=== PATIENT | male | born 1945 | race Asian ===

== ENCOUNTER 2025-08-19 11:38 | Emergency (ER) | payer BC, OTHER ==
[~2025-08-19] VITALS: Ht 165.1 cm; Wt 81.8 kg
[2025-08-19 11:42] VITALS: BP 114/71; PULSE 78; RESP 18; TEMP 97.1; O2SAT 92
--- NOTE | 2025-08-19 14:35 | ED.PDOC ---
Back pain HPI HPI Comments 80M presents to the ER in a wheelchair being pushed by son/spouse w/ prior MHx of chronic back pain:SHx of Spinal Sx(limited mobility), Cervical Sx and the c/c of a fall injury. the son who is translating for the pt reports on the pt stating on falling 3 times on his left lower back. After the fall's the pt started to have decrease in movement to the LLE as well as severe pain this morning causing the son to give the pt pain meds before arrival to the ED. Denies any other symptoms at this time. Denies chills, fever, N/V/D, SOB, CP. Denies any other associated symptom's, modifiers, or recent injuries or sick contact at this time. Chief Complaint: Fall Injury Time Seen by MD: 14:00 Reviewed Notes: Nurses Notes, Medications, Allergies Allergies: Coded Allergies: NO KNOWN ALLERGIES (Unverified , 08/19/25) Information Source: Patient, Relative (son), Spouse Mode of Arrival: Wheelchair Timing: Hours Duration: Since onset, Hours Location of Back pain: (R) Lumbar Severity: Moderate Prehospital treatment: None Quality: Aching Onset: Fall History of: Chronic Back Pain Associated signs and symptoms: Weakness:(L) Leg Past Medical History PAST MEDICAL HISTORY: Denies Past Medical History (Other): Limited Mobility, Chrnonic Back Pain Surgical History: Denies all surgeries Surgical History (Other): Spinal Sx, Cervical Sx, Family History Family History: Reviewed,noncontributory to illness, Unknown Social History Smoker: Non-Smoker Alcohol: Denies ETOH Use Drugs: Denies Drug Use Lives In: Home Constitutional: denies: chills, diaphoresis, fatigue, fever, malaise, sweats, weakness, others EENTM: denies: blurred vision, double vision, ear bleeding, ear discharge, ear drainage, ear pain, ear ringing, eye pain, eye redness, hearing loss, mouth pain, mouth swelling, nasal discharge, nose bleeding, nose congestion, nose pain, photophobia, tearing, throat pain, throat swelling, voice changes, others Respiratory: denies: cough, hemoptysis, orthopnea, SOB at rest, shortness of b reath, SOB with excertion, stridor, wheezing, others Cardiovascular: denies: chest pain, dizzy spells, diaphoresis, Dyspnea on exertion, edema, irregular heart beat, left arm pain, lightheadedness, palpitations, PND, syncope, others Gastrointestinal: denies: abdomen distended, abdominal pain, blood streaked bowels, constipated, diarrhea, dysphagia, difficulty swallowing, hematemesis, melena, nausea, poor appetite, poor fluid intake, rectal bleeding, rectal pain, vomiting, others Genitourinary: denies: burning, dysuria, flank pain, frequency, hematuria, incontinence, penile discharge, penile sore, pain, testicle pain, testicle swelling, urgency, others Neurological: denies: dizziness, fainting, headache, left sided numbness, left sided weakness, numbness, paresthesia, pre-existing deficit, right sided numbness, right sided weakness, seizure, speech problems, tingling, tremors, weakness, others Musculoskeletal: reports: others (LLE weakness); denies: back pain, gout, joint pain, joint swelling, muscle pain, muscle stiffness, neck pain Integumetry: denies: bruises, change in color, change in hair/nails, dryness, laceration, lesions, lumps, rash, wounds, others Allergic/Immunocompromised: denies: Difficulty Healing, Frequent Infections, Hives, Itching, others Hematologic/Lymphatic: denies: anemia, blood clots, easy bleeding, easy bruising, swollen glands, others Endocrine: denies: excessive hunger, excessive sweating, excessive thirst, excessive urination, flushing, intolerance to cold, intolerance to heat, unexplained weight gain, unexplained weight loss, others Psychiatric: denies: anxiety, bipolar disorder, depression, hopeless, panic disorder, schizophrenia, sleepless, suicidal, others All Other Systems: Reviewed and Negative Physical Exam General Appearance: No Apparent Distress, Normal HEENT: Normal ENT Inspection, PERRL/EOMI, Pharynx Normal, TMs Normal Neck: Full Range of Motion, Non-Tender, Normal, Normal Inspection Respiratory: Chest Non-Tender, Lungs Clear, No Accessory Muscle Use, No Respiratory Distress, Normal Breath Sounds Cardiovascular: No Edema, No JVD, No Murmur, No Gallop, Normal Peripheral Pulses, Regular Rate/Rhythm Breast Exam: Deferred Gastrointestinal: No Organomegaly, Non Tender, No Pulsatile Mass, Normal Bowel Sounds, Soft Genitalia: Deferred Pelvic: Deferred Rectal: Deferred Extremities: Decreased range of motion, No calf tenderness, Normal capillary refill, Normal inspection, Normal range of motion, No pedal edema, Tender, Other (Left leg became very weak after the fall) Musculoskeletal : Apperance: Normal Neurologic: Alert, computer engineering professor II-XII nml as Tested, Motor Weakness, No Motor Deficits, Normal Affect, Normal Mood, No Sensory Deficits, Other (Wheelchair-bound) Cerebellar Function: NOT DONE Reflexes: NOT DONE Skin: Dry, Normal Color, Warm Peripheral Pulses: 1+ carotid (R), 1+ carotid (L) Lymphatic: No Adenopathy Was a procedure done? Was a procedure done?: No Back Pain Differential Dx Differential Diagnosis: Fracture, Musculoskeletal Pain X-Ray, Labs, Meds, VS Vital Signs Date Time Temp Pulse Resp B/P (MAP) Pulse Ox O2 Delivery O2 Flow Rate FiO2 08/19/25 11:42 97.1 78 18 114/71 92 97.1 X-Ray, Labs, Meds, VS Comment Course in the emergency department patient was sent for CT of the pelvis for but he left and no diagnosis has been made Time of 1ST Reevaluation: 14:30 Reevaluation 1ST: Unchanged Time of 2ND Reevaluation: 16:31 Reevaluation 2ND: Unchanged Consultation: PCP Patient Education/Counseling: Diagnosis, Treatment, Prognosis, Need For Follow Up Family Education/Counseling: Diagnosis, Treatment, Prognosis, Need For Follow Up, Other (Family at bedside) SEPSIS Sepsis Screen Date sepsis recognized/suspect: Aug 19, 2025 Time Sepsis recognized/suspect: 1145 Recent Procedure: No On Antibiotic Therapy: No Respiratory Rate >20: No Heart Rate >90: No Temp<36 C (96.8 F) or >38.3 C: No SBP <90 or MAP <65 mmHG: No New Acute Mental Status Change: No Is the patient on CPAP, BIPAP,: No Vital Signs Date Time Temp Pulse Resp B/P (MAP) Pulse Ox O2 Delivery O2 Flow Rate FiO2 08/19/25 11:42 97.1 78 18 114/71 92 97.1 Departure 1 Departure Time of Disposition: 16:31 Impression: Primary Impression: Fall at home Additional Impression: Contusion of left hip Disposition: 07 LEFT AWOL/ELOPED Condition: Fair Discharged With: Self, Spouse, Entry Level Accountant Critical Care Note Critical Care Time?: No Stability Stability form required: No Heart Score Heart Score: Heart Score Response (Comments) Value History N/A 0 EKG N/A 0 Age >65 2 Risk Factors >3 or Hx ASHD 2 Troponin N/A 0 Total 4 I personally scribed for LIZETT MARTINEZ MD ([email or web address]) on 08/19/25 at 14:35. Electronically submitted by Radames Browning ([email or web address]). LIZETT MARTINEZ MD Aug 19, 2025 14:35
== END 2025-08-19 17:38 | disposition home or self-care (01) ==
LOC: ER 11:38
DX: S70.02XA Contusion of left hip, initial encounter (principal); W19.XXXA Unspecified fall, initial encounter; Y93.89 Activity, other specified; Y92.009 Unspecified place in unspecified non-institutional (private) residence as the place of occurrence of the external cause; Y99.8 Other external cause status

== ENCOUNTER 2025-08-21 21:58 | Inpatient (IN) | payer BC, OTHER ==
[~2025-08-21] VITALS: Ht 172.7 cm; Wt 72.3 kg
[2025-08-21] MEDS: ACETAMINOPHEN 325 MG TAB PO ONE (22:31)
[2025-08-21 22:36] VITALS: PULSE 87; RESP 18; O2SAT 93
--- NOTE | 2025-08-22 01:50 | ED.PDOC ---
History of Present Illness HPI Comments 80-year-old, Mohawk speaking male is [id number] sudden spouse for chief complaint of bilateral leg swelling. Per son, patient legs are, normally, swollen at baseline but is reported to have, suddenly, worsened, today, following recent fall at home he sustained on 08/19/2025. Left leg is comminuted to be worse in his right, with the associated redness. No additional trauma or injuries reported since then. He is stated also to have had a recent spinal surgery performed for chronic back pain within the past few months. Patient denies having any shortness of breath or further acute symptoms. REVIEW OF SYSTEMS: General: No fever, no chills, or fatigue HEENT: No sore throat, no earache, no congestion, no neck pain. Cardiac: No chest pain. No palpitations. Lungs: No shortness of breath, no cough. GI: No nausea, no vomiting, no diarrhea, no constipation, no abdominal pain : No dysuria, frequency, or urgency. No hematuria. Musculoskeletal: Bilateral leg swelling. Skin: Redness to left leg. No rash, no itching. Neuro: No headache, no dizziness, no weakness (And as sated in HPI) PHYSICAL EXAM: General: Awake, alert and oriented. No acute distress. Skin: Skin in warm, dry and intact. Appropriate color for ethnicity. HEENT: The head is normocephalic and atraumatic. Conjunctivae are clear without exudates or hemorrhage. Sclera is non-icteric. Eyelids are normal in appearance without swelling or lesions. Oral mucosa is pink and moist Neck: The neck is supple with normal range of motion. No JVD. Cardiac: Heart rate and rhythm are normal. No murmurs, gallops, or rubs are auscultated. Respiratory: No signs of respiratory distress. Lung sounds are clear in all lobes bilaterally without rales, rhonchi, or wheezes. Abdominal: Abdomen is soft, non-tender without distention, guarding or rigidity. Bowel sounds are present and normoactive in all four quadrants. Extremities: BLE edema-left is worse than right, with erythema and warmth. Bilateral DP pulses are good. Remaining upper extremities are atraumatic in appearance without deformity or edema. Neurological: The patient is awake, alert and oriented to person, place, and time with normal speech. Speech is clear. There is no facial asymmetry. Psychiatric: Appropriate mood and affect. Good judgement and insight. Chief Complaint: Lower Extremity Time Seen by MD: 01:10 Reviewed Notes: Nurses Notes, Medications, Allergies Allergies: Coded Allergies: NO KNOWN ALLERGIES (Unverified , 08/19/25) Information Source: Patient, Relative (Child), Spouse Mode of Arrival: EMS Severity: Moderate Timing: Hours Duration: Since onset Prehospital treatment: None Past Medical History Past Medical History (Other): Limited Mobility, Chrnonic Back Pain Surgical History (Other): Spine surgery Family History Family History: Reviewed,noncontributory to illness, Unknown Social History Smoker: Non-Smoker Alcohol: Denies ETOH Use Drugs: Denies Drug Use Lives In: Home Was a procedure done? Was a procedure done?: No Differential Dx Considerations may include: DVT, cellulitis, food retention, CHF, among others X-Ray, Labs, Meds, VS Vital Signs Date Time Temp Pulse Resp B/P (MAP) Pulse Ox O2 Delivery O2 Flow Rate FiO2 08/21/25 23:31 98.9 08/21/25 22:36 87 18 93 Room Air* 0 21 08/21/25 22:36 100.2 87 18 113/68 (83) 93 100.2 08/21/25 22:31 101.2 08/21/25 22:07 86 08/21/25 22:05 101.3 90 16 148/87 95 101.3 Lab Test 08/22/25 01:55 Range/Units White Blood Count 8.6 4.4-10.8 10^3/uL Red Blood Count 3.60 L 4.5-5.90 10^6/uL Hemoglobin 12.4 L 13.5-17.5 g/dL Hematocrit 35.5 L 41.0-53.0 % Mean Corpuscular Volume 98.6 80.0-100.0 fL Mean Corpuscular Hemoglobin 34.5 H 28.0-32.0 pg Mean Corpuscular Hemoglobin Concent 35.0 32.0-36.0 g/dL Red Cell Distribution Width 13.5 11.8-14.3 % Platelet Count 141 140-450 10^3/uL Mean Platelet Volume 7.8 6.9-10.8 fL Neutrophils (%) (Auto) 76.2 37.0-80.0 % Lymphocytes (%) (Auto) 14.3 10.0-50.0 % Monocytes (%) (Auto) 9.1 0.0-12.0 % Eosinophils (%) (Auto) 0.3 0.0-7.0 % Basophils (%) (Auto) 0.1 0.0-2.0 % Neutrophils # (Auto) 6.5 1.6-8.6 10 ^3/uL Lymphocytes # (Auto) 1.2 0.4-5.4 10 ^3/uL Monocytes # (Auto) 0.8 0-1.3 10 ^3/uL Eosinophils # (Auto) 0 0-0.8 10 ^3/uL Basophils # (Auto) 0 0-0.2 10 ^3/uL Nucleated Red Blood Cells 0.0 % Sodium Level 140 136-145 mmol/L Potassium Level 3.5 3.5-5.1 mmol/L Chloride Level 107 98-107 mmol/L Carbon Dioxide Level 23 20-31 mmol/L Anion Gap 10 5-15 Blood Urea Nitrogen 13 9-23 mg/dL Creatinine 0.78 0.700-1.30 mg/dL Glomerular Filtration Rate Calc 90 >90 mL/min BUN/Creatinine Ratio 16.7 10.0-20.0 Serum Glucose 126 H 74-106 mg/dL Calcium Level 9.0 8.7-10.4 mg/dL Troponin I High Sensitivity 13 </=54 ng/L B-Type Natriuretic Peptide 162.03 0-100 pg/mL Current Medications Medications (Trade) Dose Ordered Sig/Bobby Route Start Time Stop Time Status Last Admin Acetaminophen (Tylenol Tablet) 650 mg ONCE ONCE PO 08/21/25 22:30 08/21/25 22:31 DC 08/21/25 22:31 Time of 1ST Reevaluation: 01:37 Reevaluation 1ST: Unchanged Patient Education/Counseling: Other (Need for admission) Family Education/Counseling: Other (Need for admission) SEPSIS Sepsis Screen Date sepsis recognized/suspect: Aug 21, 2025 Time Sepsis recognized/suspect: 2235 Recent Procedure: No On Antibiotic Therapy: No Respiratory Rate >20: No Heart Rate >90: No Temp<36 C (96.8 F) or >38.3 C: No SBP <90 or MAP <65 mmHG: No New Acute Mental Status Change: No Is the patient on CPAP, BIPAP,: No Physician Orders Electrocardigram (08/21/25 22:14) Electrocardigram (08/22/25 01:17) Chest Xray 1 View (08/22/25 01:17) Vital Signs Q1HR (08/22/25 01:17) Saline Lock (08/22/25 01:17) Solid Plasterer (08/22/25 ) Bilat Lower Dvt (08/22/25 01:17) Vital Signs Date Time Temp Pulse Resp B/P (MAP) Pulse Ox O2 Delivery O2 Flow Rate FiO2 08/21/25 23:31 98.9 08/21/25 22:36 87 18 93 Room Air* 0 21 08/21/25 22:36 100.2 87 18 113/68 (83) 93 100.2 08/21/25 22:31 101.2 08/21/25 22:07 86 08/21/25 22:05 101.3 90 16 148/87 95 101.3 Laboratory Tests Test 08/22/25 01:55 White Blood Count 8.6 10^3/uL (4.4-10.8) Medications Medications Dose Ordered Sig/Bobby Route Start Time Stop Time Status Last Admin Dose Admin Acetaminophen 650 mg ONCE ONCE PO 08/21/25 22:30 08/21/25 22:31 DC 08/21/25 22:31 Departure 1 Departure Time of Disposition: 03:11 Impression: Primary Impression: Peripheral edema Additional Impression: Pulmonary edema Disposition: ADMITTED INPATIENT Admit to: [facility] Condition: Stable Comments MDM: 80-year-old male no known history of CHF presents with bilateral lower extremity edema, pulmonary vascular congestion chest x-ray. Lasix administered in the ED. Patient admitted to hospitalist service for further treatment, evaluation and monitoring. Extensive evaluation was performed in attempt to identify or rule out: (See differential diagnosis section) The following tests were ordered, and results were reviewed by me and discussed with patient: (See diagnostic results section) The following test were independently interpreted by me: EKG, troponin, BNP, BMP, CBC I reviewed and agreed with the following test results read by other providers: Chest x-ray, bilateral lower extremity DVT ultrasound I reviewed the following notes from the pt's past medical encounters: 08/19/2025 encounter for fall at home Additional information was gathered from interviewing the following independent historians: Patient's son at bedside Discussion of management or test interpretation with external physician/other qualified health infant childcare provider: N/A Addressed an acute or chronic illness that poses a threat to life or bodily function: Pulmonary edema Decision regarding hospitalization or escalation of hospital level of care: Risk and benefits of admission for further treatment of patient's condition was considered. Due to patient's current clinical condition, high risk of decline and poor outcome if discharged and need for further inpatient management and monitoring, patient will be admitted to the hospital. Drug therapy requiring intensive monitoring for toxicity: IV furosemide Critical Care Note Critical Care Time?: No Stability Stability form required: No Heart Score Heart Score: Heart Score Response (Comments) Value History N/A 0 EKG N/A 0 Age N/A 0 Risk Factors N/A 0 Troponin N/A 0 Total 0 I personally scribed for JAQUELINE MAO MD ([email or web address]) on 08/22/25 at 01:50. El ectronically submitted by Reid Portillo ([email or web address]). JAQUELINE MAO MD Aug 22, 2025 01:50
--- NOTE | 2025-08-22 01:53 | DVH ---
Bilateral lower extremity venous duplex Clinical History: r/o dvt Comparison: None Technique: Duplex Doppler evaluation of the deep venous systems of both lower extremities from the common femoral veins to the popliteal veins including color Doppler and spectral/pulsed waveform analysis was performed. Findings: RIGHT SIDE: The common femoral vein demonstrates appropriate compressibility and waveform variability. There is compressibility/patency of the great saphenous vein at the proximal thigh. The femoral vein demonstrates appropriate compressibility and waveform variability. The deep femoral vein demonstrates appropriate compressibility and waveform variability. The popliteal vein demonstrates appropriate compressibility and waveform variability. There is normal compressibility at the tibioperoneal trunk. LEFT SIDE: The common femoral vein demonstrates appropriate compressibility and waveform variability. There is compressibility/patency of the great saphenous vein at the proximal thigh. The femoral vein demonstrates appropriate compressibility and waveform variability. The deep femoral vein demonstrates appropriate compressibility and waveform variability. The popliteal vein demonstrates appropriate compressibility and waveform variability. There is normal compressibility at the tibioperoneal trunk. Impression: No right or left femoropopliteal venous thrombosis.
--- NOTE | 2025-08-22 02:01 | DVH ---
CHEST RADIOGRAPH Indication: cp Technique: Single frontal view of the chest was obtained COMPARISON: None FINDINGS: Cardiac silhouette is borderline in size. Slight prominence of the pulmonary vasculature. Trace left-sided effusion. Bones and soft tissues demonstrate no significant abnormality. IMPRESSION: Mild pulmonary venous congestion.
[2025-08-22 02:18] LABS: Hematocrit 35.5 % (41.0-53.0); Hemoglobin 12.4 g/dL (13.5-17.5); Mean Corpuscular Hemoglobin 34.5 pg (28.0-32.0); Mean Corpuscular Volume 98.6 fL (80.0-100.0); Nucleated Red Blood Cells % 0.0 %
[2025-08-22 02:26] LABS: Chloride 107 mmol/L (98-107); Potassium 3.5 mmol/L (3.5-5.1); Sodium 140 mmol/L (136-145)
[2025-08-22 02:27] LABS: Anion Gap 10 (5-15); Calcium 9.0 mg/dL (8.7-10.4); Carbon Dioxide 23 mmol/L (20-31)
[2025-08-22 02:32] LABS: BUN/Creatinine Ratio 16.7 (10.0-20.0); Blood Urea Nitrogen 13 mg/dL (9-23)
[2025-08-22 02:54] LABS: Glucose 126 mg/dL (74-106)
--- NOTE | 2025-08-22 04:07 | DVHHPRES ---
History of Present Illness Resident Creating Document: JENNIFER KO History of Present Illness Patient is a Albanian-speaking 80-year-old male with past medical history of BPH and Parkinson's disease, presented to [facility] ED with complaint of worsening bilateral leg swelling. The patient typically has baseline leg swelling, but it acutely worsened today, following a fall from wheelchair at home on 08/19/2025. The left leg is reported to be more swollen and red than the right. The patient has a history of spinal surgery performed 7 years ago for chronic back pain. After the surgery, the patient progressively experienced limited mobility and eventually became wheelchair-bound He denies shortness of breath, chest pain, dizziness, blurred vision, nausea, or vomiting. On evaluation in the ED, patient is febrile, vitals are stable. Initial labs show normocytic anemia, serum glucose 126 and BNP 162.03. The patient was started on IV antibiotics and IV fluids. Patient is admitted for further evaluation and management. Past Medical History BPH, Parkinson's disease Past Surgical History Spinal surgery 7 years ago Family History: None Smoke: Quit ALCOHOL: occassional Drugs: None Review of Systems Review of Systems Eyes: No Pain, No Vision change, No Conjunctivae inflammation, No Eyelid inflammation, No Other, No Redness ENT: No Ear pain, No Ear discharge, No Nose pain, No Nose discharge, No Nose congestion, No Mouth pain, No Mouth swelling, No Throat pain, No Throat swelling, No Other Cardiovascular: No Chest Pain, No Palpitations, No Orthopnea, No Paroxysmal No Dyspnea, Edema, No Lt Headedness, No Other Respiratory: No Cough, No Dry, No Shortness of breath, No SOB with exertion, No Wheezing, No Hemoptysis, No Pleuritic Pain, No Sputum, No Other Gastrointestinal: No Nausea, No Vomiting, No Abdominal Pain, No Diarrhea, No Constipation, No Melena, No Hematochezia, No Other Genitourinary: No Dysuria, No Frequency, No Incontinence, No Hematuria, No Retention, No Other Musculoskeletal: Bilateral leg swelling. No other, No neck pain, No shoulder pain, No arm pain, back pain, No hand pain, leg pain, No foot pain Skin: Redness to left leg. Rash, No Lesions, No Jaundice, No Bruising, No Other Allergies: Coded Allergies: NO KNOWN ALLERGIES (Unverified , 08/19/25) Exam Vital Signs Vital Signs Date Time Temp Pulse Resp B/P (MAP) Pulse Ox O2 Delivery O2 Flow Rate FiO2 08/21/25 23:31 98.9 08/21/25 22:36 87 18 93 Room Air* 0 21 08/21/25 22:36 113/68 (83) Exam General Appearance: Cooperative. Well developed. Well nourished. NAD Head Exam: Normal inspection Neck Exam: Normal inspection. Non-tender. Normal alignment Pulmonary/Respiratory: Chest non-tender. Clear bilateral breath sounds, no crackles, no wheezing. Cardiovascular/Chest: Regular rate and rhythm. No murmurs. No JVD. Peripheral Pulses: 2+ Radial (R). 2+ Radial (L). 2+ Pedal (R). 2+ Pedal (L) Abdominal Exam: Normal bowel sounds. Soft. normal abdomen, no visible veins, Nontender. No hepatospenomegaly. No masses Ankle Exam: Negative ankle edema Extremities: Bilateral lower extremity edema, left greater than right. Left leg with erythema and warmth. No calf tenderness. No signs of trauma to upper extremities. No deformities. Musculoskeletal: Limited mobility. Wheelchair-bound. No joint deformities noted. Neuro/Mental Status: A&O x4. Coherent. Thoughts/Psych: Normal thought pattern. Appropriate mood and affect. Good judgement and insight Skin Exam: Normal inspection. Normal color. Warm. Dry Labs/Xrays Labs Test 08/22/25 01:55 Range/Units White Blood Count 8.6 4.4-10.8 10^3/uL Red Blood Count 3.60 L 4.5-5.90 10^6/uL Hemoglobin 12.4 L 13.5-17.5 g/dL Hematocrit 35.5 L 41.0-53.0 % Mean Corpuscular Volume 98.6 80.0-100.0 fL Mean Corpuscular Hemoglobin 34.5 H 28.0-32.0 pg Mean Corpuscular Hemoglobin Concent 35.0 32.0-36.0 g/dL Red Cell Distribution Width 13.5 11.8-14.3 % Platelet Count 141 140-450 10^3/uL Mean Platelet Volume 7.8 6.9-10.8 fL Neutrophils (%) (Auto) 76.2 37.0-80.0 % Lymphocytes (%) (Auto) 14.3 10.0-50.0 % Monocytes (%) (Auto) 9.1 0.0-12.0 % Eosinophils (%) (Auto) 0.3 0.0-7.0 % Basophils (%) (Auto) 0.1 0.0-2.0 % Neutrophils # (Auto) 6.5 1.6-8.6 10 ^3/uL Lymphocytes # (Auto) 1.2 0.4-5.4 10 ^3/uL Monocytes # (Auto) 0.8 0-1.3 10 ^3/uL Eosinophils # (Auto) 0 0-0.8 10 ^3/uL Basophils # (Auto) 0 0-0.2 10 ^3/uL Nucleated Red Blood Cells 0.0 % Sodium Level 140 136-145 mmol/L Potassium Level 3.5 3.5-5.1 mmol/L Chloride Level 107 98-107 mmol/L Carbon Dioxide Level 23 20-31 mmol/L Anion Gap 10 5-15 Blood Urea Nitrogen 13 9-23 mg/dL Creatinine 0.78 0.700-1.30 mg/dL Glomerular Filtration Rate Calc 90 >90 mL/min BUN/Creatinine Ratio 16.7 10.0-20.0 Serum Glucose 126 H 74-106 mg/dL Calcium Level 9.0 8.7-10.4 mg/dL Troponin I High Sensitivity 13 </=54 ng/L B-Type Natriuretic Peptide 162.03 0-100 pg/mL SEPSIS Sepsis Screen Date sepsis recognized/suspect: Aug 21, 2025 Time Sepsis recognized/suspect: 2235 Recent Procedure: No On Antibiotic Therapy: No Respiratory Rate >20: No Heart Rate >90: No Temp<36 C (96.8 F) or >38.3 C: No SBP <90 or MAP <65 mmHG: No New Acute Mental Status Change: No Is the patient on CPAP, BIPAP,: No Physician Orders Electrocardigram (08/21/25 22:14) Electrocardigram (08/22/25 01:17) Chest Xray 1 View (08/22/25 01:17) Vital Signs Q1HR (08/22/25 01:17) Saline Lock (08/22/25 01:17) Engraver Lettering (08/22/25 ) Bilat Lower Dvt (08/22/25 01:17) Vital Signs Date Time Temp Pulse Resp B/P (MAP) Pulse Ox O2 Delivery O2 Flow Rate FiO2 08/21/25 23:31 98.9 08/21/25 22:36 87 18 93 Room Air* 0 21 08/21/25 22:36 100.2 87 18 113/68 (83) 93 100.2 08/21/25 22:31 101.2 08/21/25 22:07 86 08/21/25 22:05 101.3 90 16 148/87 95 101.3 Laboratory Tests Test 08/22/25 01:55 White Blood Count 8.6 10^3/uL (4.4-10.8) Medications Medications Dose Ordered Sig/Bobby Route Start Time Stop Time Status Last Admin Dose Admin Acetaminophen 650 mg ONCE ONCE PO 08/21/25 22:30 08/21/25 22:31 DC 08/21/25 22:31 650 MG Assessment/Plan Assessment/Plan Bilateral lower extremity cellulitis Ruled out DVT Bilateral lower extremity venous duplex: No right or left femoropopliteal venous thrombosis. Chest X-ray : Mild pulmonary venous congestion. Echocardiogram ordered Vancomycin IV per pharmacy pain management with Dilaudid and Lidocaine 1 patch UA MRSA screen Lasix 40 MG IV daily BPH Tamsulosin 0.4 MG PO qpm Parkinson disease Pramipexole 0.25 MG PO q8h Diet: Regular Goals of care: Full code, discussed for >30 minutes on 08/22/25 Plan discussed with patient Plan discussed with Dr. June Plan discussed with: Patient Date of Service: Aug 22, 2025 Billing Provider: ADRIANO JUNE MD Common Visit Codes: 62822-[id number] INP/OBS CARE (HIGH) Secondary Visit Codes: [id number]-[id number] CARE PLAN 30 MINUTES JENNIFER KO RESIDENT Aug 22, 2025 04:07
[2025-08-22] MEDS: LIDOCAINE 5% TOPICAL PATCH TOP ONE (04:15)
[2025-08-22] MEDS ORDERED: VANCOMYCIN PER PHARMACY 0 MG IV SCH (04:15)
[2025-08-22 05:14] LABS: Alanine Aminotransferase 30.0 U/L (7-40); Albumin 4.0 g/dL (3.2-4.8); Alkaline Phosphatase 59.0 U/L (46-116); Magnesium 2.1 mg/dL (1.6-2.6); Total Protein 6.7 g/dL (5.7-8.2)
[2025-08-22 05:17] LABS: Bilirubin, Total 1.3 mg/dL (0.2-1.0)
[2025-08-22 05:29] LABS: Bilirubin, Direct 0.4 mg/dL (<0.3)
[2025-08-22 05:50] LABS: Urine Protein, UAD TRACE (Negative)
--- NOTE | 2025-08-22 05:52 | ECG ---
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
[2025-08-22] MEDS: PRAMIPEXOLE DIHYDROCHLORIDE MO 0.25 MG TAB PO SCH (07:00)
[2025-08-22] MEDS: FUROSEMIDE 40 MG/4 ML VIAL IV ONE (07:08)
[2025-08-22] MEDS: TAMSULOSIN HYDROCHLORIDE 0.4 MG CAP PO ONE (07:12)
[2025-08-22] MEDS: VANCOMYCIN 1GM/250ML KIT 250 ML IV ONE (07:13)
[2025-08-22 07:52] VITALS: PULSE 60; RESP 18; O2SAT 93
[2025-08-22 07:56] LABS: Hematocrit 37.0 % (41.0-53.0); Nucleated Red Blood Cells % 0.0 %
[2025-08-22 07:59] LABS: Hemoglobin 12.9 g/dL (13.5-17.5); Mean Corpuscular Hemoglobin 34.5 pg (28.0-32.0); Mean Corpuscular Volume 98.9 fL (80.0-100.0)
[2025-08-22 08:25] LABS: Alanine Aminotransferase 29 U/L (7-40); Albumin 4.2 g/dL (3.2-4.8); Alkaline Phosphatase 62 U/L (46-116); BUN/Creatinine Ratio 14.3 (10.0-20.0); Blood Urea Nitrogen 13 mg/dL (9-23); Calcium 8.8 mg/dL (8.7-10.4); Carbon Dioxide 26 mmol/L (20-31); Sodium 143 mmol/L (136-145); Total Protein 7.3 g/dL (5.7-8.2)
[2025-08-22 08:26] LABS: Bilirubin, Total 1.4 mg/dL (0.2-1.0); Glucose 107 mg/dL (74-106); Potassium 3.3 mmol/L (3.5-5.1)
[2025-08-22 08:40] LABS: COVID19 ANTIGEN SOFIA FIA NEGATIVE (NEGATIVE)
[2025-08-22] MEDS: POTASSIUM CHL 20MEQ/100ML 100 ML IV SCH (09:01)
[2025-08-22 09:10] LABS: Anion Gap 10 (5-15); Chloride 107 mmol/L (98-107)
[2025-08-22 09:41] LABS: Triglycerides 88.0 mg/dL (< 150)
[2025-08-22 09:43] LABS: Cholesterol 170.0 mg/dL (< 200); HDL Cholesterol 53.0 mg/dL (40-59)
[2025-08-22] MEDS: FUROSEMIDE 40 MG/4 ML VIAL IV SCH (10:51)
--- NOTE | 2025-08-22 11:58 | DVHSR ---
APPROVED REPORT EXAM: Two-dimensional and M-mode echocardiogram with Doppler and color Doppler. Blood Pressure: 151/91 mmHg RISK FACTORS Height: 5'8, Weight: 110 DIMENSIONS LVDd 5.2 (3.8-5.7cm) LA (2D) 3.5 (1.9-4.0cm) Aortic Root 3.6 (2.0-3.7cm) LVDs 3.7 (2.5-4.0cm) LA (MM) (1.9-4.0cm) Aortic Cusp Exc 1.8 (1.5-2.0cm) EF (%) 55.0 (55-70%) Rt. Atrium 3.4 (1.9-4.0cm) Asc. Aorta 3.5 cm IVSd 0.7 (0.7-1.1cm) RV (D) 4.4 (1.8-2.4cm) PWd 0.7 (0.7-1.1cm) Mitral Valve Mitral Mitral Stenosis E wave 1.00m/s MV Mean GR. mmHg A wave 1.08m/s MV Peak GR. 105mmHg E/A ratio 0.9 2D MVA cm2 DECEL Time 197ms PRESS 1/2 Time ms Aortic Valve Aortic Valve Aortic Stenosis V1 0.97m/s AO Mean GR. 5mmHg V2 1.39m/s AO Peak GR. 8mmHg LVOT Diameter 1.9 (1.8-2.4cm) Doppler BONNIE 1.98cm2 AI P 1/2 Time 599.28ms Pulmonic Valve V2 1.01m/s Tricuspid Valve TR Velocity 2.82m/s RVSP 37mmHg Other Information Technically limited study due to pt moving.patient position. Conclusion lvef 55-60% moderate aortic regurg
[2025-08-22 15:20] VITALS: BP 117/71; PULSE 85; RESP 18; TEMP 98.4; O2SAT 91
[2025-08-22] MEDS ORDERED: LINA290C PO (16:54)
[2025-08-22] MEDS ORDERED: BET25T PO (16:54)
[2025-08-22] MEDS ORDERED: TAMS0.4C39 PO (16:54)
[2025-08-22] MEDS ORDERED: CHOL20002 PO (16:54)
[2025-08-22] MEDS ORDERED: ATOR10TA52 PO (16:54)
[2025-08-22] MEDS ORDERED: GABA-1250 PO (16:54)
[2025-08-22 16:59] VITALS: BP 130/78; PULSE 83; RESP 20; TEMP 98.6; O2SAT 99
[2025-08-22] MEDS: TAMSULOSIN HYDROCHLORIDE 0.4 MG CAP PO SCH (18:31)
[2025-08-22 20:00] VITALS: PULSE 80; RESP 17; O2SAT 97
[2025-08-22] MEDS: VANCOMYCIN 500mg/100mL 100 ML IV SCH (20:11)
[2025-08-22] MEDS: HYDROmorphone HCL 2 MG/ML VL/or syr IV PRN (20:29)
[2025-08-22 21:00] VITALS: BP 125/75; PULSE 76; RESP 17; TEMP 98.7; O2SAT 97
--- NOTE | 2025-08-22 21:19 | DVHPNRES ---
Progress Note Date Seen: Aug 22, 2025 Resident Creating Document: QUANG ROLDAN RESIDENT Has the PT tested + for MRSA If YES, has PT been informed?: No Medical Necessity Reason Pt with a Central, PICC or Fol: No Subjective Review of Systems Jacky Cordero is a 80-year-old male, with past medical history of BPH and Parkinson's disease. The patient presented to [facility] ED with the chief complaint of worsening bilateral leg swelling. The patient typically has baseline leg swelling, but it acutely worsened today, following a fall from wheelchair at home on 08/19/2025. The left leg is reported to be more swollen and red than the right. The patient has a history of spinal surgery performed 7 years ago for chronic back pain. After the surgery, the patient progressively experienced limited mobility and eventually became wheelchair-bound He denies shortness of breath, chest pain, dizziness, blurred vision, nausea, or vomiting. On evaluation in the ED, patient is febrile, vitals are stable. Initial labs show normocytic anemia, serum glucose 126 and BNP 162.03. The patient was started on IV antibiotics and IV fluids. Patient is admitted for further evaluation and management. Past Medical History: BPH, Parkinson's disease Past Surgical History: Spinal surgery 7 years ago Family History: Lives with family, Social history: None Smoke: quit >10 years ago. Alcohol: occasional Drugs: None Hospital course: On 08/22/25, the patient was evaluated and examined at bedside. VS, labs and chart was reviewed. The patient reports left leg pain 9/10, with minimal improved with analgesia. The patient was hypokalemic this morning, potassium was replenished. Doppler US of bilateral leg showed; No right or left femoropopliteal venous thrombosis. The continue with IV antibiotics ceftriaxone and vancomicyn. Blood cultures are pending. New ECHO was ordered, reported: lvef 55-60% moderate aortic regurgitation. We will continue monitoring the progress of this patient. Review of Systems Eyes: No Pain, No Vision change, No Conjunctivae inflammation, No Eyelid inflammation, No Other, No Redness ENT: No Ear pain, No Ear discharge, No Nose pain, No Nose discharge, No Nose congestion, No Mouth pain, No Mouth swelling, No Throat pain, No Throat swelling, No Other Cardiovascular: No Chest Pain, No Palpitations, No Orthopnea, No Paroxysmal No Dyspnea, Edema, No Lt Headedness, No Other Respiratory: No Cough, No Dry, No Shortness of breath, No SOB with exertion, No Wheezing, No Hemoptysis, No Pleuritic Pain, No Sputum, No Other Gastrointestinal: No Nausea, No Vomiting, No Abdominal Pain, No Diarrhea, No Constipation, No Melena, No Hematochezia, No Other Genitourinary: No Dysuria, No Frequency, No Incontinence, No Hematuria, No Retention, No Other Musculoskeletal: Bilateral leg edema. No other, No neck pain, No shoulder pain, No arm pain, chronic back pain, No hand pain, left leg pain, No foot pain Skin: Erythema to left leg. Rash, No Lesions, No Jaundice, No Bruising, No Other Allergies: No known allergies Objective vital signs Vital Sign Date Time Temp Pulse Resp B/P (MAP) Pulse Ox O2 Delivery O2 Flow Rate FiO2 08/22/25 20:29 75 18 152/104 08/22/25 16:59 98.6 99 98.6 08/22/25 15:20 Room Air* 0 21 medications Current Medications Medications Dose Ordered Sig/Bobby Route Start Time Stop Time Status Last Admin Dose Admin Hydromorphone HCl 0.5 mg Q4HPRN PRN IV 08/22/25 04:15 08/22/25 20:29 0.5 MG Vancomycin HCl 0 ml @ 0 mls/hr PER PHARMACY IV 08/22/25 04:15 Pramipexole Dihydrochloride 0.25 mg Q8HR PO 08/22/25 06:00 08/22/25 14:04 0.25 MG Tamsulosin HCl 0.4 mg QPM PO 08/22/25 18:00 08/22/25 18:31 0.4 MG Lidocaine 1 patch DAILY TOP 08/23/25 10:00 Furosemide 40 mg DAILY IV 08/22/25 10:00 08/22/25 10:51 40 MG Vancomycin HCl 100 ml @ 200 mls/hr Q12H IV 08/22/25 20:00 08/22/25 20:11 200 MLS/HR Enoxaparin Sodium 40 mg DAILY SC 08/23/25 10:00 Examination General Appearance: Cooperative. Well developed. Well nourished. NAD Head Exam: Normal inspection Neck Exam: Normal inspection. Non-tender. Normal alignment Pulmonary/Respiratory: Chest non-tender. Clear bilateral breath sounds, no crackles, no wheezing. Cardiovascular/Chest: Regular rate and rhythm. No murmurs. No JVD. Peripheral Pulses: 2+ Radial (R). 2+ Radial (L). 2+ Pedal (R). 2+ Pedal (L) Abdominal Exam: Normal bowel sounds. Soft. normal abdomen, no visible veins, Nontender. No hepatospenomegaly. No masses Ankle Exam: Negative ankle edema Extremities: Bilateral lower extremity edema, left greater than right. Left leg with erythema and warmth. No calf tenderness. No signs of trauma to upper extremities. No deformities. Musculoskeletal: Limited mobility. Wheelchair-bound. No joint deformities noted. Neuro/Mental Status: A&O x4. Coherent. Thoughts/Psych: Normal thought pattern. Appropriate mood and affect. Good judgement and insight Skin Exam: Normal inspection. Normal color. Warm. Dry laboratory and microbiology Laboratory Tests 08/22/25 07:20 Test 08/22/25 07:20 Range/Units Serum Glucose 107 H 74-106 mg/dL Microbiology Date/Time Source Procedure Growth Status 08/22/25 07:23 Nose MRSA Screen - Final Complete Problem List/Assessment/Plan Problem List/Assessment/Plan #Acute bilateral lower extremity cellulitis #DVT, ruled out Bilateral lower extremity venous duplex: No right or left femoropopliteal venous thrombosis. Chest X-ray : Mild pulmonary venous congestion. Echocardiogram: completed. EF 55-60% Vancomycin IV per pharmacy pain management with Dilaudid and Lidocaine 1 patch UA MRSA screen Lasix 40 MG IV daily #Chronic BPH Tamsulosin 0.4 MG PO qpm #Chronic Parkinson disease Pramipexole 0.25 MG PO q8h #Pre-diabetes Counseling about healthy life style >10 min #Acute hypokalemia K:3.3 Replenish K and Mg monitor. Diet:Low carb diet Goals of care: Full code, discussed for >35min Code status: Full code PCP: Dr. Adelaide Ortiz. Plan discussed with Dr. June Plan discussed with: Patient My Orders My Orders Orders - QUANG ROLDAN RESIDENT Procedure Category Date Status Time Blood Culture MONSERRAT 08/22/25 In Process 08:36 Urine Bacterial MONSERRAT 08/22/25 In Process Culture 08:36 Stool Occult Blood LAB 08/22/25 Logged 08:37 Insert/Manage Urinary CAMRYN 08/22/25 In Process Catheter 09:46 Enoxaparin Sodium PHA 08/23/25 In Process (Lovenox) 10:00 Date of Service: Aug 22, 2025 Billing Provider: ADRIANO JUNE MD Common Visit Codes: [id number] INP/OBS CARE(HIGH) QUANG ROLDAN RESIDENT Aug 22, 2025 21:19
[2025-08-23] VITALS (8 sets, daily range): BP systolic 103–161; BP diastolic 64–89; PULSE 70–93; RESP 16–20; TEMP 97.9–99.6; O2SAT 92–96
[2025-08-23 06:31] LABS: Hemoglobin 12.1 g/dL (13.5-17.5)
[2025-08-23 06:33] LABS: Hematocrit 34.2 % (41.0-53.0); Mean Corpuscular Hemoglobin 34.8 pg (28.0-32.0); Mean Corpuscular Volume 98.5 fL (80.0-100.0); Nucleated Red Blood Cells % 0.1 %
[2025-08-23 06:39] LABS: Potassium 3.3 mmol/L (3.5-5.1)
[2025-08-23 06:44] LABS: Magnesium 2.1 mg/dL (1.6-2.6)
[2025-08-23] MEDS: ENOXAPARIN SOD 40 MG/0.4 ML SYRINGE SC SCH (08:56)
[2025-08-23] MEDS: CHOLECALCIFEROL (VITD3) 1,000UNIT=25mCg TAB PO SCH (08:57)
[2025-08-23] MEDS: LIDOCAINE 5% TOPICAL PATCH TOP SCH (08:59)
[2025-08-23] MEDS: ERGOCALCIFEROL 50,000 UNIT(1.25MG) CAP PO SCH (11:51)
[2025-08-23] MEDS: CYANOCOBALAMIN (B-12) 1000 MCG/1 ML VIAL IM ONE (11:51)
[2025-08-23] MEDS: POTASSIUM EFFERVESENT TAB 25 MEQ PO ONE (11:51)
[2025-08-23] MEDS: CYANOCOBALAMIN 500 MCG TAB PO ONE (13:14)
--- NOTE | 2025-08-23 15:02 | MEDREC ---
[facility] Intervention Section I [facility] Intervention: Deescalate AB based on CS (PER [facility] GUIDELINE CELLULITIS DUE TO MRSA IS UNCOMMON AND TREATMENT FOR THAT ORGANISM IS USUALLY UNNECESSARY MRSA NARES NEGATIVE => NO EVIDENCE OF COLONIZATION PLEASE CONSIDER DE- ESCALATION TO CEFAZOLIN ) AMRIT DESAI PHARMACIST Aug 23, 2025 15:02
--- NOTE | 2025-08-23 20:20 | DVHPNRES ---
Progress Note Date Seen: Aug 23, 2025 Resident Creating Document: QUANG ROLDAN RESIDENT Has the PT tested + for MRSA If YES, has PT been informed?: No Medical Necessity Reason Pt with a Central, PICC or Fol: No Subjective Review of Systems Jacky Cordero is a 80-year-old male, with past medical history of BPH and Parkinson's disease. The patient presented to [facility] ED with the chief complaint of worsening bilateral leg swelling. The patient typically has baseline leg swelling, but it acutely worsened today, following a fall from wheelchair at home on 08/19/2025. The left leg is reported to be more swollen and red than the right. The patient has a history of spinal surgery performed 7 years ago for chronic back pain. After the surgery, the patient progressively experienced limited mobility and eventually became wheelchair-bound He denies shortness of breath, chest pain, dizziness, blurred vision, nausea, or vomiting. On evaluation in the ED, patient is febrile, vitals are stable. Initial labs show normocytic anemia, serum glucose 126 and BNP 162.03. The patient was started on IV antibiotics and IV fluids. Patient is admitted for further evaluation and management. Past Medical History: BPH, Parkinson's disease Past Surgical History: Spinal surgery 7 years ago Family History: Lives with family, Social history: None Smoke: quit >10 years ago. Alcohol: occasional Drugs: None Hospital course: On 08/22/25, the patient was evaluated and examined at bedside. VS, labs and chart was reviewed. The patient reports left leg pain 9/10, with minimal improved with analgesia. The patient was hypokalemic this morning, potassium was replenished. Doppler US of bilateral leg showed; No right or left femoropopliteal venous thrombosis. The continue with IV antibiotics ceftriaxone and vancomicyn. Blood cultures are pending. New ECHO was ordered, reported: lvef 55-60% moderate aortic regurgitation. We will continue monitoring the progress of this patient. On 08/23/25. The patient was evaluated and examined at bed side. VS, labs and chart were reviewed. The patient reports improvement on left leg pain 7/10 after analgesia. The patient continues with IV antibiotics, vancomycin IV. ECHO showed: lvef 55-60%, with moderate aortic regurgitation. The patient will continue with IV antibiotics and analgesia. We will continue following the progress of this patient. Review of Systems Eyes: No Pain, No Vision change, No Conjunctivae inflammation, No Eyelid inflammation, No Other, No Redness ENT: No Ear pain, No Ear discharge, No Nose pain, No Nose discharge, No Nose congestion, No Mouth pain, No Mouth swelling, No Throat pain, No Throat swelling, No Other Cardiovascular: No Chest Pain, No Palpitations, No Orthopnea, No Paroxysmal No Dyspnea, Edema, No Lt Headedness, No Other Respiratory: No Cough, No Dry, No Shortness of breath, No SOB with exertion, No Wheezing, No Hemoptysis, No Pleuritic Pain, No Sputum, No Other Gastrointestinal: No Nausea, No Vomiting, No Abdominal Pain, No Diarrhea, No Constipation, No Melena, No Hematochezia, No Other Genitourinary: No Dysuria, No Frequency, No Incontinence, No Hematuria, No Retention, No Other Musculoskeletal: Bilateral leg edema. No other, No neck pain, No shoulder pain, No arm pain, chronic back pain, No hand pain, left leg pain, No foot pain Skin: Erythema to left leg. Rash, No Lesions, No Jaundice, No Bruising, No Other Allergies: No known allergies Objective vital signs Vital Sign Date Time Temp Pulse Resp B/P (MAP) Pulse Ox O2 Delivery O2 Flow Rate FiO2 08/23/25 17:27 97.9 72 20 109/70 (83) 96 97.9 08/23/25 08:00 Room Air* 0 21 Total Intake and Output 08/22/25 08/22/25 08/23/25 15:00 23:00 07:00 Intake Total 100 ml 0 ml 560 ml Output Total 450 ml Balance 100 ml 0 ml 110 ml medications Current Medications Medications Dose Ordered Sig/Bobby Route Start Time Stop Time Status Last Admin Dose Admin Hydromorphone HCl 0.5 mg Q4HPRN PRN IV 08/22/25 04:15 08/23/25 03:55 0.5 MG Vancomycin HCl 0 ml @ 0 mls/hr PER PHARMACY IV 08/22/25 04:15 Pramipexole Dihydrochloride 0.25 mg Q8HR PO 08/22/25 06:00 08/23/25 14:38 0.25 MG Tamsulosin HCl 0.4 mg QPM PO 08/22/25 18:00 08/23/25 18:00 0.4 MG Lidocaine 1 patch DAILY TOP 08/23/25 10:00 08/23/25 08:59 1 PATCH Furosemide 40 mg DAILY IV 08/22/25 10:00 08/23/25 08:58 40 MG Enoxaparin Sodium 40 mg DAILY SC 08/23/25 10:00 08/23/25 08:56 40 MG Ergocalciferol 50,000 unit Q7D PO 08/23/25 10:15 08/23/25 11:51 50,000 UNIT Cyanocobalamin 2,000 mcg DAILY PO 08/24/25 10:00 Vancomycin HCl 100 ml @ 100 mls/hr Q12H IV 08/23/25 20:00 Examination General Appearance: Not in acute distress. Cooperative. Well developed. Well nourished. Head Exam: Normal inspection Neck Exam: Normal inspection. Non-tender. Normal alignment Pulmonary/Respiratory: Chest non-tender. Clear bilateral breath sounds, no crackles, no wheezing. Cardiovascular/Chest: Regular rate and rhythm. No murmurs. No JVD. Peripheral Pulses: 2+ Radial (R). 2+ Radial (L). 2+ Pedal (R). 2+ Pedal (L) Abdominal Exam: Normal bowel sounds. Soft. normal abdomen, no visible veins, Nontender. No hepatospenomegaly. No masses Ankle Exam: Negative ankle edema Extremities: Bilateral lower extremity edema, left greater than right. Left leg with erythema and warmth. No calf tenderness. No signs of trauma to upper extremities. No deformities. Musculoskeletal: Limited mobility. Wheelchair-bound. No joint deformities noted. Neuro/Mental Status: A&O x3. Coherent. Thoughts/Psych: Normal thought pattern. Appropriate mood and affect. Good judgement and insight Skin Exam: Normal inspection. Normal color. Warm. Dry laboratory and microbiology Laboratory Tests 08/23/25 05:56 08/23/25 05:49 08/22/25 07:20 Test 08/22/25 07:20 Range/Units Serum Glucose 107 H 74-106 mg/dL Microbiology Date/Time Source Procedure Growth Status 08/22/25 10:55 Blood Blood Culture - Preliminary NO GROWTH AFTER 24 HOURS OF INCUBATION. Resulted 08/22/25 07:23 Nose MRSA Screen - Final Complete 08/22/25 05:20 Voided Urine Urine Culture - Preliminary Resulted Problem List/Assessment/Plan Problem List/Assessment/Plan #Acute bilateral lower extremity cellulitis #DVT, ruled out Bilateral lower extremity venous duplex: No right or left femoropopliteal venous thrombosis. Chest X-ray : Mild pulmonary venous congestion. Echocardiogram: completed. EF 55-60% Vancomycin IV per pharmacy Pain management with Dilaudid UA: no UTI Blood culture: negative 24hrs Urine culture preliminary: >100,000 CFU/mL Mixed Gram Positive Jayla. >3 [place] Types MRSA screen: negative Lasix 40 MG IV daily #Chronic BPH Tamsulosin 0.4 MG PO qpm #Chronic Parkinson disease Pramipexole 0.25 MG PO q8h #Pre-diabetes HbA1C 6.1% Counseling about healthy life style >10 min #Acute hypokalemia K:3.3 Replenish K and Mg monitor. Diet:Low carb diet Goals of care: Full code, discussed for >35min Code status: Full code PCP: Dr. Adelaide Ortiz. Plan discussed with Dr. June Plan discussed with: Patient My Orders My Orders Orders - QUANG ROLDAN Procedure Category Date Status Time Communication Order ORDERS 08/22/25 Transmitted 21:06 Communication Order ORDERS 08/23/25 Transmitted 09:06 Date of Service: Aug 23, 2025 Billing Provider: ADRIANO JUNE MD Common Visit Codes: [id number] INP/OBS CARE(HIGH) QUANG ROLDAN RESIDENT Aug 23, 2025 20:20
[2025-08-23] MEDS: VANCOMYCIN 750MG KIT 100 ML IV SCH (22:21)
[2025-08-24 01:00] VITALS: BP 154/82; PULSE 72; RESP 17; TEMP 97.9; O2SAT 95
[2025-08-24 05:00] VITALS: BP 160/90; PULSE 67; RESP 16; TEMP 97.7; O2SAT 93
[2025-08-24 06:03] LABS: Potassium 3.6 mmol/L (3.5-5.1)
[2025-08-24 06:09] LABS: Magnesium 2.2 mg/dL (1.6-2.6)
[2025-08-24] MEDS ORDERED: SACC1CAP3 PO (07:21)
[2025-08-24] MEDS ORDERED: CEPH250C PO (07:21)
[2025-08-24] MEDS ORDERED: ERGO1CAP23 PO (07:21)
[2025-08-24] MEDS ORDERED: CLIN1CAP70 PO (07:21)
[2025-08-24 08:00] VITALS: PULSE 88; RESP 14; O2SAT 96
[2025-08-24 09:00] VITALS: BP 143/89; PULSE 72; RESP 17; TEMP 97; O2SAT 94
[2025-08-24] MEDS: CYANOCOBALAMIN 500 MCG TAB PO SCH (09:20)
[2025-08-24 09:32] LABS: Hemoglobin 11.8 g/dL (13.5-17.5)
[2025-08-24 09:34] LABS: Hematocrit 34.3 % (41.0-53.0); Mean Corpuscular Hemoglobin 34.7 pg (28.0-32.0); Mean Corpuscular Volume 100.9 fL (80.0-100.0); Nucleated Red Blood Cells % 0.1 %
[2025-08-24] MEDS: hydrALAZINE HCL 20 MG/ML VL IV ONE (09:45)
[2025-08-24] MEDS ORDERED: CYAN100056 PO (10:15)
--- NOTE | 2025-08-24 11:39 | DVHDSRES ---
Discharge Summary Date of Admission Resident Creating Document: QUANG ROLDAN RESIDENT Aug 22, 2025 at 04:15 Date of Discharge: Aug 24, 2025 Admitting Diagnosis #Acute bilateral lower extremity cellulitis, worse on the left side. #Possible acute DVT, ruled out Wounds: Small healed wound cover with crust on the left lanza that was present on admission. Labs/Diagnostic Data: Laboratory Results Test 08/24/25 05:18 08/23/25 18:58 08/22/25 17:22 08/22/25 07:23 White Blood Count 8.0 10^3/uL (4.4-10.8) Red Blood Count 3.40 10^6/uL (4.5-5.90) Hemoglobin 11.8 g/dL (13.5-17.5) Hematocrit 34.3 % (41.0-53.0) Mean Corpuscular Volume 100.9 fL (80.0-100.0) Mean Corpuscular Hemoglobin 34.7 pg (28.0-32.0) Mean Corpuscular Hemoglobin Concent 34.4 g/dL (32.0-36.0) Red Cell Distribution Width 13.5 % (11.8-14.3) Platelet Count 195 10^3/uL (140-450) Mean Platelet Volume 8.6 fL (6.9-10.8) Neutrophils (%) (Auto) 67.1 % (37.0-80.0) Lymphocytes (%) (Auto) 21.0 % (10.0-50.0) Monocytes (%) (Auto) 9.5 % (0.0-12.0) Eosinophils (%) (Auto) 2.0 % (0.0-7.0) Basophils (%) (Auto) 0.4 % (0.0-2.0) Neutrophils # (Auto) 5.3 10 ^3/uL (1.6-8.6) Lymphocytes # (Auto) 1.7 10 ^3/uL (0.4-5.4) Monocytes # (Auto) 0.8 10 ^3/uL (0-1.3) Eosinophils # (Auto) 0.2 10 ^3/uL (0-0.8) Basophils # (Auto) 0 10 ^3/uL (0-0.2) Nucleated Red Blood Cells 0.1 % Potassium Level 3.6 mmol/L (3.5-5.1) Creatinine 0.80 mg/dL (0.700-1.30) Glomerular Filtration Rate Calc 89 mL/min (>90) Magnesium Level 2.2 mg/dL (1.6-2.6) Vancomycin Level Trough 5.5 ug/mL (5-10) Vitamin B12 Level 297 pg/mL (211-911) Vitamin D 25-Hydroxy 10.8 ng/mL (30.0-100) Influenza Type A Antigen Negative (Negative) Influenza Type B Antigen Negative (Negative) SARS-CoV-2 Antigen (Rapid) Negative (NEGATIVE) Test 08/22/25 07:20 08/22/25 05:20 08/22/25 01:55 Erythrocyte Sedimentation Rate 72 mm/hr (0-20) Sodium Level 143 mmol/L (136-145) Chloride Level 107 mmol/L (98-107) Carbon Dioxide Level 26 mmol/L (20-31) Anion Gap 10 (5-15) Blood Urea Nitrogen 13 mg/dL (9-23) BUN/Creatinine Ratio 14.3 (10.0-20.0) Serum Glucose 107 mg/dL (74-106) Hemoglobin A1c 6.1 % A1C (<5.7) Calcium Level 8.8 mg/dL (8.7-10.4) Total Bilirubin 1.4 mg/dL (0.2-1.0) Aspartate Amino Transferase (AST) 28 U/L (13-40) Alanine Aminotransferase (ALT) 29 U/L (7-40) Alkaline Phosphatase 62 U/L (46-116) C-Reactive Protein High Sensitivity 11.79 mg/dL (<1.0) B-Type Natriuretic Peptide 171.58 pg/mL (0-100) Total Protein 7.3 g/dL (5.7-8.2) Albumin 4.2 g/dL (3.2-4.8) Triglycerides Level 88 mg/dL (< 150) Cholesterol Level 170 mg/dL (< 200) LDL Cholesterol 103 mg/dL (< 100) HDL Cholesterol 53 mg/dL (40-59) Thyroid Stimulating Hormone (TSH) 3.14 uIU/mL (0.55-4.78) Urine Color Yellow (Yellow) Urine Clarity Clear (Clear) Urine pH 5.5 (5.0-9.0) Urine Specific [place] 1.018 (1.001-1.035) Urine Protein Trace (Negative) Urine Ketones Trace (Negative) Urine Blood Negative /uL (Negative) Urine Nitrite Negative (Negative) Urine Bilirubin Negative (Negative) Urine Urobilinogen Normal mg/dL (Negative) Urine Leukocyte Esterase Negative /uL (Negative) Urine RBC 3 /hpf (0 - 3) Urine Microscopic WBC 3 /HPF (0-3) Urine Squamous Epithelial Cells None seen /hpf (<5) Urine Bacteria None seen /hpf (None Seen) Urine Mucus Few (None Seen) Urine Glucose 2+ mg/dL (Normal) Lactic Acid Level 0.9 mmol/L (0.4-2.0) Direct Bilirubin 0.4 mg/dL (<0.3) Troponin I High Sensitivity 13 ng/L (</=54) Other Laboratory Tests 08/24/25 05:18 08/22/25 07:20 Brief Hx & Hospital Course: Jacky Cordero is a 80-year-old male, with past medical history of BPH and Parkinson's disease. The patient presented to [facility] ED with the chief complaint of worsening bilateral leg swelling. The patient typically has baseline leg swelling, but it acutely worsened today, following a fall from wheelchair at home on 08/19/2025. The left leg is reported to be more swollen and red than the right. The patient has a history of spinal surgery performed 7 years ago for chronic back pain. After the surgery, the patient progressively experienced limited mobility and eventually became wheelchair-bound He denies shortness of breath, chest pain, dizziness, blurred vision, nausea, or vomiting. On evaluation in the ED, patient is febrile, vitals are stable. Initial labs show normocytic anemia, serum glucose 126 and BNP 162.03. The patient was started on IV antibiotics and IV fluids. Patient is admitted for further evaluation and management. Past Medical History: BPH, Parkinson's disease Past Surgical History: Spinal surgery 7 years ago Family History: Lives with family, Social history: None Smoke: quit >10 years ago. Alcohol: occasional Drugs: None Hospital course: during his hospital stay the patient was evaluated and assessed as follow: On 08/22/25, the patient was evaluated and examined at bedside. VS, labs and chart was reviewed. The patient reports left leg pain /10, with minimal improved with analgesia. The patient was hypokalemic this morning, potassium was replenished. Doppler US of bilateral leg showed; No right or left femoropopliteal venous thrombosis. The continue with IV antibiotics ceftriaxone and vancomicyn. Blood cultures are pending. New ECHO was ordered, reported: lvef 55-60% moderate aortic regurgitation. We will continue monitoring the progress of this patient. On 08/23/25. The patient was evaluated and examined at bed side. VS, labs and chart were reviewed. The patient reports improvement on left leg pain 7/10 after analgesia. The patient continues with IV antibiotics, vancomycin IV. ECHO showed: lvef 55-60%, with moderate aortic regurgitation. The patient will continue with IV antibiotics and analgesia. We will continue following the progress of this patient. On 08/24/25. The patient was evaluated and examined at bed side. VS, labs and chart were reviewed. Hypokalemia has resolved K 3.6. Blood cultures are negative at 72hrs. Urine culture showed mix gram positive radha. The patient reports felling well today with improvement on left leg pain, now is 3/10, now he can bear weight on the left extremity. Due to clinical significant improvement the patient will be discharge home with dual oral antibiotics: cephalexin and clindamycin for 10 days. The patient will follow up with PCP in 1 week and in the D/C clinic next Friday08/30/[address] Georgette Mcduffie. ROS Eyes: No Pain, No Vision change, No Conjunctivae inflammation, No Eyelid inflammation, No Other, No Redness ENT: No Ear pain, No Ear discharge, No Nose pain, No Nose discharge, No Nose congestion, No Mouth pain, No Mouth swelling, No Throat pain, No Throat swelling, No Other Cardiovascular: No Chest Pain, No Palpitations, No Orthopnea, No Paroxysmal No Dyspnea, Edema, No Lt Headedness, No Other Respiratory: No Cough, No Dry, No Shortness of breath, No SOB with exertion, No Wheezing, No Hemoptysis, No Pleuritic Pain, No Sputum, No Other Gastrointestinal: No Nausea, No Vomiting, No Abdominal Pain, No Diarrhea, No Constipation, No Melena, No Hematochezia, No Other Genitourinary: No Dysuria, No Frequency, No Incontinence, No Hematuria, No Retention, No Other Musculoskeletal: Bilateral leg edema improved. No other, No neck pain, No shoulder pain, No arm pain, No hand pain, left leg pain has improved. 3/10. Skin: Erythema to left leg improved. No Lesions. Physical exam. General Appearance: Not in acute distress. Cooperative. Well developed. Well nourished. Head Exam: Normal inspection Neck Exam: Normal inspection. Non-tender. Normal alignment Pulmonary/Respiratory: Chest non-tender. Clear bilateral breath sounds, no crackles, no wheezing. Cardiovascular/Chest: Regular rate and rhythm. No murmurs. No JVD. Peripheral Pulses: 2+ Radial (R). 2+ Radial (L). 2+ Pedal (R). 2+ Pedal (L) Abdominal Exam: Normal bowel sounds. Soft. normal abdomen, no visible veins, Nontender. No hepatospenomegaly. No masses Ankle Exam: Negative ankle edema Extremities: Bilateral lower extremity edema, left greater than right. Left leg with erythema and warmth. No calf tenderness. No signs of trauma to upper extremities. No deformities. Musculoskeletal: Limited mobility. Wheelchair-bound. No joint deformities noted. Neuro/Mental Status: A&O x3. Coherent. Thoughts/Psych: Normal thought pattern. Appropriate mood and affect. Good judgement and insight Skin Exam: Normal inspection. Normal color. Warm. Dry Consults/Reason for consult None Operations or Procedures PROCEDURE(s): CXR1 - CHEST XRAY 1 VIEW REASON: cp ORDER NUMBER(s): [id number], ACCESSION NUMBER(s): [id number] CHEST RADIOGRAPH Indication: cp Technique: Single frontal view of the chest was obtained COMPARISON: None FINDINGS: Cardiac silhouette is borderline in size. Slight prominence of the pulmonary vasculature. Trace left-sided effusion. Bones and soft tissues demonstrate no significant abnormality. IMPRESSION: Mild pulmonary venous congestion. EDURE(s): BLDVT - BiLat Lower DVT REASON: r/o dvt ORDER NUMBER(s): [id number], ACCESSION NUMBER(s): [id number] Bilateral lower extremity venous duplex Clinical History: r/o dvt Comparison: None Technique: Duplex Doppler evaluation of the deep venous systems of both lower extremities from the common femoral veins to the popliteal veins including color Doppler and spectral/pulsed waveform analysis was performed. Findings: RIGHT SIDE: The common femoral vein demonstrates appropriate compressibility and waveform variability. There is compressibility/patency of the great saphenous vein at the proximal thigh. The femoral vein demonstrates appropriate compressibility and waveform variability. The deep femoral vein demonstrates appropriate compressibility and waveform variability. The popliteal vein demonstrates appropriate compressibility and waveform variability. There is normal compressibility at the tibioperoneal trunk. LEFT SIDE: The common femoral vein demonstrates appropriate compressibility and waveform variability. There is compressibility/patency of the great saphenous vein at the proximal thigh. The femoral vein demonstrates appropriate compressibility and waveform variability. The deep femoral vein demonstrates appropriate compressibility and waveform variability. The popliteal vein demonstrates appropriate compressibility and waveform variability. There is normal compressibility at the tibioperoneal trunk. Impression: No right or left femoropopliteal venous thrombosis. Condition at Discharge: Stable Final Diagnosis/Problems List #Acute bilateral lower extremity cellulitis, worse on the left side. #Possible acute DVT, ruled out #Chronic BPH #Chronic Parkinson disease #Pre-diabetes #Acute hypokalemia Discharge Disposition: Home SNF Discharge Will this Physician continue t: No Discharge Instruct/Medications Diet: Consistent carbohydrate, Cardiac 2g Na,low cholest Activity: Light activity Follow Up/Referral: F/U with PCP in one week Medications: Cephalexin 250mg po QID x 10 days Clindamycin 600mg BID x 10 days Scheduled Atorvastatin Calcium (Atorvastatin Calcium), 1 TAB PO DAILY, (Reported) Bethanechol Chloride (Urecholine Tablet), 1 TAB PO TID, (Reported) Cephalexin (Keflex Capsule), 1 CAP PO QID Clindamycin Hcl (Clindamycin Hcl), 1 CAP PO TID Cyanocobalamin (B-12), 1,000 MCG PO DAILY Ergocalciferol (Vitamin D 93432 Unit), 50,000 UNIT PO weekly Gabapentin (Gabapentin), 1 CAP PO DAILY, (Reported) Linaclotide Base (Linzess), 1 CAP PO DAILY, (Reported) Tamsulosin Hcl (Tamsulosin Hcl), 2 CAP PO DAILY, (Reported) Yeast (S. Boulardii)(S. Cerevi (Probiotic), 250 MG PO DAILY Discontinued Medications Cholecalciferol (Vitamin D3), 1 CAP PO DAILY, (Reported) Discharge Statement: "Patient was advised to return to the ER or call 911 if any headaches, dizziness, shortness of breath, chest pain, abdominal pain, bleeding, fevers, or worsening of medical condition. Patient was counseled about treatment plan, medications, possible side effects, patientverbalized understanding. All questions were answered to the best of my ability. This discharge took greater then 30 minutes in planning, reviewing documentation, counseling the patient, and discussing with other team members." Discharge Care Plan Instructions Take Rx medications, Notify MD of any issues, Keep list of meds w/ you, Do not drink ETOH/smoke, Call 911 in an emergency, F/U w/ PCP, Provide comfort measures ASSESSMENT ASSESSMENT Assessment #Acute bilateral lower extremity cellulitis, worse on the left side. #Possible acute DVT, ruled out #Chronic BPH #Chronic Parkinson disease #Pre-diabetes #Acute hypokalemia Goals of care: Full code, discussed for >35min Code status: Full code PCP: Dr. Adelaide Ortiz. Plan discussed with Dr. June Date of Service: Aug 24, 2025 Billing Provider: ADRIANO JUNE MD Common Visit Codes: 31221-YCO/OBS DISCH DAY >30min QUANG ROLDAN RESIDENT Aug 24, 2025 11:39
== END 2025-08-24 12:43 | disposition home or self-care (01) | DRG 602 ==
LOC: ER 21:58 → EDBD 21:58 → OVERFLOW 08-22 04:15 → EAST 08-22 15:14
PROVIDERS: ADMIT Internal Medicine; ATTEND Internal Medicine
DX: L03.115 Cellulitis of right lower limb (principal); I50.31 Acute diastolic (congestive) heart failure; J81.1 Chronic pulmonary edema; L03.116 Cellulitis of left lower limb; G20.A1 Parkinson's disease without dyskinesia, without mention of fluctuations; I35.1 Nonrheumatic aortic (valve) insufficiency; E87.6 Hypokalemia; Z20.822 Contact with and (suspected) exposure to COVID-19; N40.0 Benign prostatic hyperplasia without lower urinary tract symptoms; G89.29 Other chronic pain; M54.9 Dorsalgia, unspecified; R73.03 Prediabetes; Z87.891 Personal history of nicotine dependence
CPT/HCPCS: 36415; 71045; 80048; 80053; 80061; 80076; 80202; 81001; 82306; 82565; 82607; 83036; 83605; 83735; 83880; 84132; 84443; 84484; 85025; 85652; 86141; 87040; 87081; 87086; 87426; 87804; 93005; 93306; 93970; 97116; 97163; 97530; G0378; J3480